=== PATIENT | female | born 1970 | race Hispanic/Latino ===

== ENCOUNTER → 2018-03-18 | Outpatient (CLI) | payer OTHER ==
[~2018-03-18] MED LIST: LORA-868 PO
== END | disposition home or self-care (01) ==
LOC: RAH 12:50
PROVIDERS: ATTEND Physician Assistant Medical
DX: Z12.31 Encounter for screening mammogram for malignant neoplasm of breast (principal)
CPT/HCPCS: 77067

== ENCOUNTER → 2020-11-22 | Outpatient (CLI) | payer BC | END | disposition home or self-care (01) | LOC: RAH 07:59 | PROVIDERS: ATTEND Physician Assistant Medical | DX: Z12.31 Encounter for screening mammogram for malignant neoplasm of breast (principal) | CPT/HCPCS: 77067 ==

== ENCOUNTER 2025-02-22 10:26 | Emergency (ER) | payer OTHER, BC ==
[~2025-02-22] VITALS: Ht 152.4 cm; Wt 68.0 kg
--- NOTE | 2025-02-22 10:33 | NUR ---
C-COLLAR CLEARED BY DR. GIL.
--- NOTE | 2025-02-22 10:36 | NUR ---
FAST EXAM NEGATIVE PER DR. GIL.
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
[2025-02-22 11:11] LABS: IMMATURE GRANULOCYTE ABSOLUTE 0.04 K/uL (0-1); NUCLEATED RED BLOOD CELLS 0.0 % (0.0-0.19); PLATELET COUNT (AUTO) 207 K/uL (130-400); RED BLOOD CELL COUNT(AUTO) 4.70 MIL/uL (4.00-5.50); RED CELL DISTRIBUTION WIDTH 12.5 % (11.0-15.5); WHITE BLOOD COUNT (AUTO) 5.9 K/uL (4.8-10.8)
[2025-02-22] MEDS: ORPHENADRINE 60MG/2ML IM ONE (11:18)
[2025-02-22 11:25] LABS: CREATININE 0.4 mg/dL (0.5-1.0); GLOMERULAR FILTR. RATE CALC 116.0 mL/min (>90); GLUCOSE,RANDOM 107.0 mg/dL (70-105); SODIUM SERUM 140.0 mmol/L (136-145); UREA NITROGEN, BLOOD 21.0 mg/dL (7-18)
[2025-02-22 11:28] LABS: CREATINE KINASE, TOTAL 127.0 U/L (21-232)
[2025-02-22 11:43] LABS: ADD UA MICROSCOPIC YES; APPEARANCE,URINE CLEAR (CLEAR); GLUCOSE, URINE (UA) NEGATIVE (NEGATIVE); LEUKOCYTE ESTERASE ,URINE NEGATIVE Leu/uL (NEGATIVE); NITRATE,URINE NEGATIVE (NEGATIVE); OCCULT BLOOD,URINE NEGATIVE (NEGATIVE)
[2025-02-22 12:03] LABS: SQUAMOUS EPITHELIAL CELL,UR RARE /HPF (0-2)
--- NOTE | 2025-02-22 12:33 | HMCIMG ---
EXAM: CR Chest, 1 View. CLINICAL HISTORY: cp COMPARISON: None provided. FINDINGS: LUNGS: The lungs show no infiltrate or other acute finding. PLEURAL SPACES: No pleural effusion or pneumothorax. MEDIASTINUM: Cardiac size and mediastinal contours within normal limits. BONES: No aggressive appearing osseous lesion seen. IMPRESSION: No acute cardiopulmonary pathology is evident. /[place]
--- NOTE | 2025-02-22 12:35 | HMCIMG ---
EXAM: CR Thoracic Spine, 2 View. CLINICAL HISTORY: cp COMPARISON: None provided. FINDINGS: BONES: No acute fracture or aggressive appearing osseous lesion. DISCS / DEGENERATIVE CHANGES: The disc spaces are preserved. SOFT TISSUES: The paraspinal soft tissue lines are unremarkable. The visualized lungs are clear. MISCELLANEOUS: Visualization of the upper thoracic spine is limited on the lateral view by overlying structures. IMPRESSION: No acute thoracic spine osseous abnormality. /[place]
--- NOTE | 2025-02-22 12:35 | HMCIMG ---
EXAM: CR Lumbar Spine, 3 View. CLINICAL HISTORY: cp COMPARISON: None provided. FINDINGS: BONES: No acute fracture or aggressive appearing osseous lesion. ALIGNMENT: Alignment is within normal limits. No significant scoliosis. DISCS / DEGENERATIVE CHANGES: Mild degenerative changes of the spine. SOFT TISSUES: The soft tissues are unremarkable. IMPRESSION: 1. No acute osseous injury. 2. Mild degenerative changes of the lumbar spine. /[place]
[2025-02-22] MEDS ORDERED: NAPR-1505 PO (12:41)
[2025-02-22] MEDS ORDERED: METH-662 PO (12:41)
--- NOTE | 2025-02-22 12:55 | EKG ---
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
[2025-02-22 13:53] VITALS: BP 124/80; PULSE 88; RESP 20; TEMP 98.3; O2SAT 98
== END 2025-02-22 13:58 | disposition home or self-care (01) ==
LOC: EDH 10:26
DX: R07.89 Other chest pain (principal); Z90.710 Acquired absence of both cervix and uterus; Z90.49 Acquired absence of other specified parts of digestive tract; V89.2XXA Person injured in unspecified motor-vehicle accident, traffic, initial encounter; Y93.89 Activity, other specified; Y92.89 Other specified places as the place of occurrence of the external cause; Y99.8 Other external cause status
CPT/HCPCS: 36415; 71045; 72070; 72100; 80048; 81001; 82550; 84484; 85025; 93005; 96372; 99285; J2360

== ENCOUNTER 2025-02-26 10:16 | Emergency (ER) | payer BC, OTHER ==
[~2025-02-26] VITALS: Ht 152.4 cm; Wt 67.6 kg
[~2025-02-26 10:16] MED LIST changes: +METH-662 PO; +NAPR-1505 PO
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
[2025-02-26 14:46] VITALS: BP 126/71; PULSE 66; RESP 16; TEMP 98; O2SAT 97
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
[2025-02-26] MEDS ORDERED: ENAL-89 PO (16:04)
== END 2025-02-26 16:35 | disposition home or self-care (01) ==
LOC: EDH 10:16
DX: R51.9 Headache, unspecified (principal); I10 Essential (primary) hypertension; Z79.899 Other long term (current) drug therapy; Z90.49 Acquired absence of other specified parts of digestive tract; Z90.710 Acquired absence of both cervix and uterus; V89.2XXA Person injured in unspecified motor-vehicle accident, traffic, initial encounter; Y93.I9 Activity, other involving external motion; Y92.488 Other paved roadways as the place of occurrence of the external cause; Y99.8 Other external cause status
CPT/HCPCS: 70450; 99284